=== PATIENT | male | born 1985 | race Caucasian/White ===

== ENCOUNTER 2016-04-25 16:28 | Emergency (ER) | payer OTHER, SELFPAY ==
[2016-04-25 17:02] LABS: Mean Cell Volume 96.5 fl (78-100); Mean Corpuscular Hemoglobin 34.5 pg (26-32); Mean Platelet Volume 10.1 fl (6-9.5); Platelet Count 216 K/mm3 (150-450); Red Blood Count 4.84 M/mm3 (4.1-5.6); Red Cell Distribution Width 13.1 % (11.5-14.0); White Blood Count 10.6 K/mm3 (4.0-10.5)
--- NOTE | 2016-04-25 17:08 | ERPHSYRPT ---
- History of Present Illness Time Seen by Provider: 04/25/16 17:06 Source: patient, police Exam Limitations: no limitations Patient Subjective Stated Complaint: Vince at the [facility] states pt is to have medical clearance for transfer and admission to [facility]. [facility] states they have bed assignment for pt. pt denies any pain. Triage Nursing Assessment: pt pink, warm, dry. pt alert and orineted x3. pt has superficial burn to right arm he states happend at work. pupils perrl. Physician History: The patient is a 31-year-old male brought in by police for medical clearance before transport to the [facility] in [place] for admission. Timing/Duration: today Severity: moderate Modifying Factors: Improves With: nothing Associated Symptoms: other (depression) Allergies/Adverse Reactions: No Known Drug Allergies Allergy (Verified 12/09/14 19:36) Home Medications: Paliperidone [Invega] 12 mg PO DAILY 12/04/13 [History] Dextroamphetamine/Amphetamine [Adderall 30 mg Tablet] 30 mg PO DAILY 11/06/14 [ History] Hydrocodone/Acetaminophen [Vicodin Es 7.5-300 mg Tablet] 1 tab PO BID 11/06/14 [ History] Hx Tetanus, Diphtheria Vaccination/Date Given: Yes (up to date) Hx Influenza Vaccination/Date Given: No Hx Pneumococcal Vaccination/Date Given: No Immunizations Up to Date: Yes - Review of Systems Constitutional: No Fever, No Chills Eyes: No Symptoms Ears, Nose, & Throat: No Symptoms Respiratory: No Cough, No Dyspnea Cardiac: No Chest Pain, No Edema, No Syncope Abdominal/Gastrointestinal: No Abdominal Pain, No Nausea, No Vomiting, No Diarrhea Genitourinary Symptoms: No Dysuria Musculoskeletal: No Back Pain, No Neck Pain Skin: No Rash Neurological: No Dizziness, No Focal Weakness, No Sensory Changes Psychological: Depression Endocrine: No Symptoms Hematologic/Lymphatic: No Symptoms Immunological/Allergic: No Symptoms All Other Systems: Reviewed and Negative - Past Medical History Pertinent Past Medical History: No Neurological History: No Pertinent History ENT History: No Pertinent History Cardiac History: No Pertinent History Respiratory History: No Pertinent History Endocrine Medical History: No Pertinent History Musculoskeletal History: No Pertinent History GI Medical History: No Pertinent History History: No Pertinent History Psycho-Social History: Anxiety, Other Male Reproductive Disorders: No Pertinent History Other Medical History: SCHITZOPHRENIA - Past Surgical History Past Surgical History: Yes Neuro Surgical History: No Pertinent History Cardiac: No Pertinent History Respiratory: No Pertinent History Gastrointestinal: No Pertinent History Genitourinary: No Pertinent History Musculoskeletal: Orthopedic Surgery Male Surgical History: No Pertinent History Other Surgical History: L WRIST REPAIR - Social History Smoking Status: Current every day smoker How long have you smoked: 18 Exposure to second hand smoke: Yes Drug Use: none Patient Lives Alone: No - Nursing Vital Signs Nursing Vital Signs: Initial Vital Signs Temperature 97.5 F Temperature Source Oral Pulse Rate 952 Respiratory Rate 18 Blood Pressure [Right Arm] 141/71 Pain Intensity 0 - Physical Exam General Appearance: mild distress Eye Exam: PERRL/EOMI, eyes nml inspection Ears, Nose, Throat Exam: normal ENT inspection, TMs normal, pharynx normal, moist mucous membranes Neck Exam: normal inspection, non-tender, supple, full range of motion Respiratory Exam: normal breath sounds, lungs clear, No respiratory distress Cardiovascular Exam: regular rate/rhythm, normal heart sounds, normal peripheral pulses Gastrointestinal/Abdomen Exam: soft, normal bowel sounds, No tenderness, No mass Rectal Exam: not done Back Exam: normal inspection, normal range of motion, No CVA tenderness, No vertebral tenderness Extremity Exam: normal inspection, normal range of motion, pelvis stable Neurologic Exam: depressed mood/affect Skin Exam: normal color, warm, dry, No rash Lymphatic Exam: No adenopathy SpO2 Interpretation: normal SpO2: 96 Oxygen Delivery: Room Air Ordered Tests: Active Orders 24 hr Category Date Time Status Clean Catch Urine Specimen STAT Care 04/25/16 16:39 Active Regular Diet Diet 04/26/16 Breakfast Active ACETAMINOPHEN Stat Lab 04/25/16 16:55 Completed BMP Stat Lab 04/25/16 16:55 Completed CBC Stat Lab 04/25/16 16:55 Completed Ethyl Alcohol,Urine Stat Lab 04/25/16 16:55 Completed SALICYLATE Stat Lab 04/25/16 16:55 Completed UA W/ MICROSCOPIC Stat Lab 04/25/16 16:55 Completed Urine Triage Profile Stat Lab 04/25/16 16:55 Completed Lab/Rad Data: Laboratory Result Diagrams 04/25/16 16:55 04/25/16 16:55 Laboratory Results 04/25/16 04/25/16 04/25/16 Range/Units 16:55 16:55 16:55 WBC (4.0-10.5) K/mm3 RBC (4.1-5.6) M/mm3 Hgb (12.5-18.0) gm/dl Hct (42-50) % MCV (78-100) fl MCH (26-32) pg MCHC (32-36) g/dl RDW (11.5-14.0) % Plt Count (150-450) K/mm3 MPV (6-9.5) fl Sodium 143 (136-145) mEq/L Potassium 3.9 (3.5-5.1) mEq/L Chloride 104 (98-107) mEq/L Carbon Dioxide 23.1 (21-32) mEq/L Anion Gap 19.6 H (5-15) MEQ/L BUN 10 (9-20) mg/dL Creatinine 1.12 (0.55-1.30) mg/dl Estimated GFR > 60 ML/MIN Glucose 116 H (70-110) MG/DL Calcium 9.4 (8.5-10.1) mg/dL Ur Collection Type Urine Color (YELLOW) Urine Appearance (CLEAR) Urine pH 6.0 (5-6) Ur Specific [place] (1.005-1.025) Urine Protein (Negative) Urine Glucose (UA) (NEGATIVE) mg/dL Urine Ketones (NEGATIVE) Urine Nitrite (NEGATIVE) Urine Bilirubin (NEGATIVE) Urine Urobilinogen (0-1) mg/dL Urine WBC (Auto) (NEGATIVE) Urine RBC (Auto) (0-5) Andres/ul Urine Microscopic RBC (0-2) /HPF Urine Microscopic WBC (0-5) /HPF Ur Epithelial Cells (FEW) /HPF Urine Bacteria (NEGATIVE) /HPF Urine Mucus (NEGATIVE) /HPF Salicylates 8.9 (2.8-20.0) mg/dl Urine Opiates Level NEG. (NEGATIVE) Ur Methadone NEG. (NEGATIVE) Acetaminophen < 2.0 L (10-30) ug/ml Urine Barbiturates NEG. (NEGATIVE) Ur Phencyclidine (PCP) NEG. (NEGATIVE) Urine Amphetamine NEG. (NEGATIVE) U Benzodiazepine Level NEG. (NEGATIVE) Urine Cocaine NEG. (NEGATIVE) Urine Marijuana (THC) NEG. (NEGATIVE) Urine Ethyl Alcohol 6 (0.00-20) mg/dl Specimen Received 04/25/16 04/25/16 Range/Units 16:55 16:55 WBC 10.6 H (4.0-10.5) K/mm3 RBC 4.84 (4.1-5.6) M/mm3 Hgb 16.7 (12.5-18.0) gm/dl Hct 46.7 (42-50) % MCV 96.5 (78-100) fl MCH 34.5 H (26-32) pg MCHC 35.8 (32-36) g/dl RDW 13.1 (11.5-14.0) % Plt Count 216 (150-450) K/mm3 MPV 10.1 H (6-9.5) fl Sodium (136-145) mEq/L Potassium (3.5-5.1) mEq/L Chloride (98-107) mEq/L Carbon Dioxide (21-32) mEq/L Anion Gap (5-15) MEQ/L BUN (9-20) mg/dL Creatinine (0.55-1.30) mg/dl Estimated GFR ML/MIN Glucose (70-110) MG/DL Calcium (8.5-10.1) mg/dL Ur Collection Type CLEAN CATCH Urine Color DARK YELLOW (YELLOW) Urine Appearance SLIGHTLY CLOUDY (CLEAR) Urine pH 6.0 (5-6) Ur Specific [place] >=1.030 (1.005-1.025) Urine Protein 30 (Negative) Urine Glucose (UA) NEGATIVE (NEGATIVE) mg/dL Urine Ketones MODERATE-40 (NEGATIVE) Urine Nitrite NEGATIVE (NEGATIVE) Urine Bilirubin MODERATE (NEGATIVE) Urine Urobilinogen 1 (0-1) mg/dL Urine WBC (Auto) NEGATIVE (NEGATIVE) Urine RBC (Auto) NEGATIVE (0-5) Andres/ul Urine Microscopic RBC 5-10 (0-2) /HPF Urine Microscopic WBC 2-5 (0-5) /HPF Ur Epithelial Cells FEW (FEW) /HPF Urine Bacteria MODERATE (NEGATIVE) /HPF Urine Mucus MANY (NEGATIVE) /HPF Salicylates (2.8-20.0) mg/dl Urine Opiates Level (NEGATIVE) Ur Methadone (NEGATIVE) Acetaminophen (10-30) ug/ml Urine Barbiturates (NEGATIVE) Ur Phencyclidine (PCP) (NEGATIVE) Urine Amphetamine (NEGATIVE) U Benzodiazepine Level (NEGATIVE) Urine Cocaine (NEGATIVE) Urine Marijuana (THC) (NEGATIVE) Urine Ethyl Alcohol (0.00-20) mg/dl Specimen Received 04/25/16 1715 - Progress Progress: unchanged Counseled pt/family regarding: lab results, diagnosis - Departure Time of Disposition: 17:51 Departure Disposition: Home Clinical Impression: Medical clearance for psychiatric admission, Mild dehydration Condition: Stable Critical Care Time: No
[2016-04-25 17:36] LABS: ANION GAP 19.6 MEQ/L (5-15); BLOOD UREA NITROGEN 10 mg/dL (9-20); CHLORIDE 104 mEq/L (98-107); Carbon Dioxide 23.1 mEq/L (21-32); Glucose 116 MG/DL (70-110); Potassium 3.9 mEq/L (3.5-5.1); SODIUM 143 mEq/L (136-145)
[2016-04-25 17:37] LABS: ACETAMINOPHEN < 2.0 ug/ml (10-30)
[2016-04-25 17:41] LABS: COMPLETE URINE MICROSCOPIC? YES; Collection Type CLEAN CATCH
[2016-04-25 17:42] LABS: Bacteria MODERATE /HPF (NEGATIVE); Epithelial Cells FEW /HPF (FEW); Mucus MANY /HPF (NEGATIVE)
[2016-04-25 18:34] LABS: ALBUMIN 4.6 g/dL (3.4-5.0); BILIRUBIN,TOTAL 0.6 mg/dL (0.2-1.0); Total Protein 8.3 gm/dL (6.4-8.2)
[2016-04-25 18:44] VITALS: BP 146/92; PULSE 100; O2SAT 98
[2016-04-25 18:50] LABS: Direct Bilirubin 0.17 MG/DL (0.0-0.2)
== END 2016-04-25 19:12 | disposition short-term general hospital (02) ==
LOC: ED 16:28
DX: Z04.6 Encounter for general psychiatric examination, requested by authority (principal); E86.0 Dehydration; T22.00XA Burn of unspecified degree of shoulder and upper limb, except wrist and hand, unspecified site, initial encounter
CPT/HCPCS: 36415; 80048; 80076; 80307; 80320; 81000; 83986; 85027; 99283; G0481

== ENCOUNTER 2019-06-19 00:57 | Emergency (ER) | payer SELFPAY ==
[2019-06-19] MEDS ORDERED: SODIUM CHLORIDE 0.9% IV ONE ×4 (00:58)
[2019-06-19] MEDS ORDERED: Versed 50 MG/ 10 Ml MDV*** 50 MG in Sodium Chloride 0.9% 250 ML 250 ML IV ONE (00:58)
[2019-06-19] MEDS ORDERED: Quelicin Fliptop 200 MG/10 ML IV ONE (00:58)
[2019-06-19] MEDS ORDERED: ZEMURON IV ONE ×4 (00:58)
[2019-06-19] MEDS ORDERED: Zemuron 100 MG/10 ML IV ONE ×2 (00:58)
[2019-06-19] MEDS ORDERED: Amidate 20 MG/10 ML IV ONE (00:58)
[2019-06-19] MEDS ORDERED: VERSED 5 MG/5 ML IV ONE (00:58)
[2019-06-19] MEDS ORDERED: Sodium Chloride 0.9% 1000 ML 1,000 ML ONE (00:59)
[2019-06-19] MEDS ORDERED: Zofran 4 MG/2 ML VIAL IV ONE (01:20)
[2019-06-19] MEDS ORDERED: Sodium Chloride 0.9% 1000 ML 1,000 ML IV STA (01:20)
--- NOTE | 2019-06-19 01:37 | ERPHSYRPT ---
- History of Present Illness Time Seen by Provider: 06/19/19 01:00 Source: EMS Exam Limitations: clinical condition, intoxication Physician History: 34 years old male is brought in the ER by EMS with chief complaint of overdose. Patient was found at home and has ingested trihexyphenidyl and clonidine. Reportedly patient has taken trihexyphenidyl 5 mg x 15 and clonidine 0.5 mg x 23 around 8 PM tonight. Patient was in and out of consciousness on EMS arrival. Later on patient was belligerent. On arrival in the ER patient is difficult to arouse but maintaining vitals. Oral cavity/mouth is stained with chewed trihexyphenidyl. History is limited and is obtained from EMS. Timing/Duration: hour(s) (5) Severity of Symptoms-Max: severe Allergies/Adverse Reactions: No Known Drug Allergies Allergy (Verified 06/19/19 05:01) Home Medications: Clonazepam 0.5 mg [Klonopin 0.5 MG] 0.5 mg PO BID 06/19/19 [History] Trihexyphenidyl HCl 5 mg PO TIDPRN 06/19/19 [History] Hx Tetanus, Diphtheria Vaccination/Date Given: Yes (up to date) Hx Influenza Vaccination/Date Given: No Hx Pneumococcal Vaccination/Date Given: No - Past Medical History Pertinent Past Medical History: No Neurological History: No Pertinent History ENT History: No Pertinent History Cardiac History: No Pertinent History Respiratory History: No Pertinent History Endocrine Medical History: No Pertinent History Musculoskeletal History: No Pertinent History GI Medical History: No Pertinent History History: No Pertinent History Psycho-Social History: Anxiety, Other Male Reproductive Disorders: No Pertinent History Other Medical History: SCHITZOPHRENIA - Past Surgical History Past Surgical History: Yes Neuro Surgical History: No Pertinent History Cardiac: No Pertinent History Respiratory: No Pertinent History Gastrointestinal: No Pertinent History Genitourinary: No Pertinent History Musculoskeletal: Orthopedic Surgery Male Surgical History: No Pertinent History Other Surgical History: L WRIST REPAIR - Social History Smoking Status: Current every day smoker How long have you smoked: 18 Exposure to second hand smoke: Yes Drug Use: none Patient Lives Alone: No - Review of Systems All Other Systems: Unable due to condition - Nursing Vital Signs Nursing Vital Signs: Initial Vital Signs Pulse Rate 68 06/19/19 00:57 Respiratory Rate 20 06/19/19 00:57 Blood Pressure 98/54 06/19/19 00:57 - Physical Exam General Appearance: no apparent distress, other (Unconscious) Eyes, Ears, Nose, Throat Exam: normal ENT inspection, TMs normal, pharynx normal , moist mucous membranes (2 tablets standing lips and tongue) Neck Exam: normal inspection, non-tender, supple Respiratory Exam: normal breath sounds, lungs clear, No chest tenderness, No respiratory distress Cardiovascular Exam: regular rate/rhythm, normal heart sounds, normal peripheral pulses Gastrointestinal/Abdominal Exam: soft, normal bowel sounds, No tenderness, No distention, No mass, No guarding Extremities Exam: normal inspection, evidence of injury Neurological Exam: withdraws to pain (Dilated pupils 5 mm bilaterally, sluggish response. Normal tone. Normal deep tendon reflexes 2+ laterally. full neuro exam cannot be done) Skin Exam: normal color, warm SpO2 Interpretation: normal O2 Delivery: Room Air Procedures - Intubation Intubation Indications: airway protection Intubation Method: glidescope Tube Size (cm): 7.5 Medications: Etomidate, Succinylcholine Endotracheal Tube Confirmation: bilateral breath sounds, positive end tidal CO2 , good rise & fall of chest Intubation Complications: no complications Performed By: ED Physician Post Intubation Xray: Yes - Course Nursing assessment & vital signs reviewed: Yes EKG Interpreted by Me: RATE (64), NORMAL AXIS, NORMAL INTERVALS, NORMAL QRS Ordered Tests: Active Orders 24 hr Category Date Time Status Accucheck STAT Care 06/19/19 01:20 Active Rigger Apprentice STAT Care 06/19/19 01:21 Active Catheter-[place] STAT Care 06/19/19 01:20 Active EKG-ER Only STAT Care 06/19/19 01:20 Active Gastric Tube Insertion STAT Care 06/19/19 01:20 Active IV Insertion STAT Care 06/19/19 01:20 Active NPO (ED) STAT Care 06/19/19 01:20 Active CHEST 1 VIEW (PORTABLE) Routine Exams 06/19/19 01:35 Taken CHEST 1 VIEW (PORTABLE) Stat Exams 06/19/19 01:21 Taken ACETAMINOPHEN Stat Lab 06/19/19 01:50 Completed ARTERIAL BLOOD GASES Stat Lab 06/19/19 01:52 Completed CBC W DIFF Stat Lab 06/19/19 01:50 Completed CK-Creatinine Phosphokinase Stat Lab 06/19/19 01:50 Completed CMP Stat Lab 06/19/19 01:50 Completed CULTURE,URINE Stat Lab 06/19/19 02:48 Received ETHYL ALCOHOL Stat Lab 06/19/19 01:50 Completed Lactic Acid Stat Lab 06/19/19 01:52 Completed MAGNESIUM Stat Lab 06/19/19 01:50 Completed PROTIME WITH INR Stat Lab 06/19/19 01:50 Completed SALICYLATE Stat Lab 06/19/19 01:50 Completed TROPONIN Q3H Lab 06/19/19 01:50 Completed UA W/RFX UR CULTURE Stat Lab 06/19/19 02:48 Completed Urine Triage Profile Stat Lab 06/19/19 02:48 Completed Intubation [Ventilator Management] STAT RT 06/19/19 02:42 Active Respiratory Therapy Assessment DAILY RT 06/19/19 02:26 Active Medication Summary Discontinued Medications Generic Name Dose Route Start Last Admin Trade Name Freq PRN Reason Stop Dose Admin Sodium Chloride Confirm 06/19/19 00:59 Sodium Chloride 0.9% 1000 Ml Administered 06/19/19 01:00 Dose 1,000 mls @ ud .ROUTE .STK-MED ONE Sodium Chloride 1,000 mls @ 999 mls/hr 06/19/19 01:20 06/19/19 04:08 Sodium Chloride 0.9% 1000 Ml IV 06/19/19 02:20 Infused .Q1H1M STA Infusion Sodium Chloride 1,000 mls @ 125 mls/hr 06/19/19 02:00 06/19/19 01:53 Sodium Chloride 0.9% 1000 Ml IV 07/19/19 01:59 125 mls/hr .Q8H SHAJI Administration Sodium Chloride Confirm 06/19/19 01:57 Sodium Chloride 0.9% 250 Ml Administered 06/19/19 01:58 Dose 250 mls @ ud IV .STK-MED ONE Midazolam HCl 50 mg/ Sodium 250 mls @ 10 mls/hr 06/19/19 02:03 Chloride IV 07/19/19 02:02 .Q24H PRN SEDATION Protocol 2 MG/HR Midazolam HCl Confirm 06/19/19 01:57 Versed 50 Mg/ 10 Ml Mdv Administered 06/19/19 01:58 Dose 50 mg .ROUTE .STK-MED ONE Ondansetron HCl 4 mg 06/19/19 01:20 06/19/19 02:24 Zofran 4 Mg/2 Ml Vial IV 06/19/19 01:21 4 mg STAT ONE Administration Ondansetron HCl Confirm 06/19/19 02:23 Zofran 4 Mg/2 Ml Vial Administered 06/19/19 02:24 Dose 4 mg .ROUTE .STK-MED ONE Lab/Rad Data: Laboratory Result Diagrams 06/19/19 01:50 06/19/19 01:50 Laboratory Results 06/19/19 06/19/19 06/19/19 Range/Units 02:48 02:48 01:52 WBC (4.0-10.5) K/mm3 RBC (4.1-5.6) M/mm3 Hgb (12.5-18.0) gm/dl Hct (42-50) % MCV (78-100) fl MCH (26-32) pg MCHC (32-36) g/dl RDW (11.5-14.0) % Plt Count (150-450) K/mm3 MPV (7.5-11.0) fl Gran % (36.0-66.0) % Eos # (Auto) (0-0.5) Absolute Lymphs (auto) (1.0-4.6) Absolute Monos (auto) (0.0-1.3) Lymphocytes % (24.0-44.0) % Monocytes % (0.0-12.0) % Eosinophils % (0.00-5.0) % Basophils % (0.0-0.4) % Absolute Granulocytes (1.4-6.9) Basophils # (0-0.4) PT (8.83-12.87) SECONDS INR (0.8-3.0) Puncture Site LEFT BRACHIAL pCO2 38 (35-45) mmHg pO2 228 H* (75-100) mmHg Base Excess -1.7 (-2.0-2.0) O2 Saturation 93.1 L (94-100) g/dF ABG pH 7.39 (7.35-7.45) ABG HCO3 23.0 (22-28) ABG O2 Sat (Measured) 99.9 (95-100) % Tonny Test NO A-a Gradient 438 a/A Ratio 0.34 Hemoglobin 13.1 Carboxyhemoglobin 5.7 (0.0-6.9) % THgb Methemoglobin 1.1 L (1.4-1.5) % Temperature 37.0 C POC O2 Flow Rate 100 % Vent Mode A/C Tidal Volume 550 cc PEEP 5.0 cmH2O Sodium (137-145) mmol/L Potassium 3.4 L (3.5-5.1) mmol/L Chloride (98-107) mmol/L Carbon Dioxide (22-30) mmol/L Anion Gap (5-15) MEQ/L BUN (9-20) mg/dL Creatinine (0.66-1.25) mg/dL Estimated GFR ML/MIN Glucose (74-106) mg/dL Lactic Acid 0.7 (0.4-2.0) Calcium (8.4-10.2) mg/dL Magnesium (1.6-2.3) mg/dL Total Bilirubin (0.2-1.3) mg/dL AST (17-59) U/L ALT (0-50) U/L Alkaline Phosphatase (38-126) U/L Creatine Kinase (55-170) U/L Troponin I (0.000-0.034) ng/mL Serum Total Protein (6.3-8.2) g/dL Albumin (3.5-5.0) g/dL Urine Color YELLOW (YELLOW) Urine Appearance CLEAR (CLEAR) Urine pH 6.0 (5-6) Ur Specific [place] 1.010 (1.005-1.025) Urine Protein NEGATIVE (Negative) Urine Ketones NEGATIVE (NEGATIVE) Urine Blood NEGATIVE (0-5) Andres/ul Urine Nitrite NEGATIVE (NEGATIVE) Urine Bilirubin NEGATIVE (NEGATIVE) Urine Urobilinogen NEGATIVE (0-1) mg/dL Ur Leukocyte Esterase NEGATIVE (NEGATIVE) Urine WBC (Auto) 0-2 (0-5) /HPF Urine RBC (Auto) 0-2 (0-2) /HPF U Epithel Cells (Auto) NONE (FEW) /HPF Urine Bacteria (Auto) NONE SEEN (NEGATIVE) /HPF Urine Mucus (Auto) SLIGHT (NEGATIVE) /HPF Urine Culture Reflexed ORDERED SEPARATELY (NO) Urine Glucose NEGATIVE (NEGATIVE) mg/dL Salicylates (2-20) mg/dL Urine Opiates Level POSITIVE (NEGATIVE) Ur Methadone NEGATIVE (NEGATIVE) Acetaminophen (10-30) ug/ml Urine Barbiturates NEGATIVE (NEGATIVE) Ur Phencyclidine (PCP) POSITIVE (NEGATIVE) Urine Amphetamine POSITIVE (NEGATIVE) U Benzodiazepine Level POSITIVE (NEGATIVE) Urine Cocaine NEGATIVE (NEGATIVE) Urine Marijuana (THC) NEGATIVE (NEGATIVE) Ethyl Alcohol (0-10) mg/dL 06/19/19 06/19/19 06/19/19 Range/Units 01:50 01:50 01:50 WBC (4.0-10.5) K/mm3 RBC (4.1-5.6) M/mm3 Hgb (12.5-18.0) gm/dl Hct (42-50) % MCV (78-100) fl MCH (26-32) pg MCHC (32-36) g/dl RDW (11.5-14.0) % Plt Count (150-450) K/mm3 MPV (7.5-11.0) fl Gran % (36.0-66.0) % Eos # (Auto) (0-0.5) Absolute Lymphs (auto) (1.0-4.6) Absolute Monos (auto) (0.0-1.3) Lymphocytes % (24.0-44.0) % Monocytes % (0.0-12.0) % Eosinophils % (0.00-5.0) % Basophils % (0.0-0.4) % Absolute Granulocytes (1.4-6.9) Basophils # (0-0.4) PT 13.2 H (8.83-12.87) SECONDS INR 1.16 (0.8-3.0) Puncture Site pCO2 (35-45) mmHg pO2 (75-100) mmHg Base Excess (-2.0-2.0) O2 Saturation (94-100) g/dF ABG pH (7.35-7.45) ABG HCO3 (22-28) ABG O2 Sat (Measured) (95-100) % Tonny Test A-a Gradient a/A Ratio Hemoglobin Carboxyhemoglobin (0.0-6.9) % THgb Methemoglobin (1.4-1.5) % Temperature C POC O2 Flow Rate % Vent Mode Tidal Volume cc PEEP cmH2O Sodium 141 (137-145) mmol/L Potassium 3.6 (3.5-5.1) mmol/L Chloride 109 H (98-107) mmol/L Carbon Dioxide 24 (22-30) mmol/L Anion Gap 12.2 (5-15) MEQ/L BUN 10 (9-20) mg/dL Creatinine 0.67 (0.66-1.25) mg/dL Estimated GFR > 60.0 ML/MIN Glucose 102 (74-106) mg/dL Lactic Acid (0.4-2.0) Calcium 8.6 (8.4-10.2) mg/dL Magnesium 1.9 (1.6-2.3) mg/dL Total Bilirubin 0.40 (0.2-1.3) mg/dL AST 17 (17-59) U/L ALT 9 (0-50) U/L Alkaline Phosphatase 38 (38-126) U/L Creatine Kinase 29 L (55-170) U/L Troponin I < 0.012 (0.000-0.034) ng/mL Serum Total Protein 6.7 (6.3-8.2) g/dL Albumin 3.8 (3.5-5.0) g/dL Urine Color (YELLOW) Urine Appearance (CLEAR) Urine pH (5-6) Ur Specific [place] (1.005-1.025) Urine Protein (Negative) Urine Ketones (NEGATIVE) Urine Blood (0-5) Andres/ul Urine Nitrite (NEGATIVE) Urine Bilirubin (NEGATIVE) Urine Urobilinogen (0-1) mg/dL Ur Leukocyte Esterase (NEGATIVE) Urine WBC (Auto) (0-5) /HPF Urine RBC (Auto) (0-2) /HPF U Epithel Cells (Auto) (FEW) /HPF Urine Bacteria (Auto) (NEGATIVE) /HPF Urine Mucus (Auto) (NEGATIVE) /HPF Urine Culture Reflexed (NO) Urine Glucose (NEGATIVE) mg/dL Salicylates < 1.0 L (2-20) mg/dL Urine Opiates Level (NEGATIVE) Ur Methadone (NEGATIVE) Acetaminophen < 10 L (10-30) ug/ml Urine Barbiturates (NEGATIVE) Ur Phencyclidine (PCP) (NEGATIVE) Urine Amphetamine (NEGATIVE) U Benzodiazepine Level (NEGATIVE) Urine Cocaine (NEGATIVE) Urine Marijuana (THC) (NEGATIVE) Ethyl Alcohol < 10 (0-10) mg/dL 06/19/19 Range/Units 01:50 WBC 7.6 (4.0-10.5) K/mm3 RBC 3.81 L (4.1-5.6) M/mm3 Hgb 12.6 (12.5-18.0) gm/dl Hct 36.3 L (42-50) % MCV 95.3 (78-100) fl MCH 33.1 H (26-32) pg MCHC 34.7 (32-36) g/dl RDW 11.8 (11.5-14.0) % Plt Count 196 (150-450) K/mm3 MPV 9.4 (7.5-11.0) fl Gran % 50.9 (36.0-66.0) % Eos # (Auto) 0.33 (0-0.5) Absolute Lymphs (auto) 2.80 (1.0-4.6) Absolute Monos (auto) 0.59 (0.0-1.3) Lymphocytes % 36.7 (24.0-44.0) % Monocytes % 7.7 (0.0-12.0) % Eosinophils % 4.3 (0.00-5.0) % Basophils % 0.4 (0.0-0.4) % Absolute Granulocytes 3.87 (1.4-6.9) Basophils # 0.03 (0-0.4) PT (8.83-12.87) SECONDS INR (0.8-3.0) Puncture Site pCO2 (35-45) mmHg pO2 (75-100) mmHg Base Excess (-2.0-2.0) O2 Saturation (94-100) g/dF ABG pH (7.35-7.45) ABG HCO3 (22-28) ABG O2 Sat (Measured) (95-100) % Tonny Test A-a Gradient a/A Ratio Hemoglobin Carboxyhemoglobin (0.0-6.9) % THgb Methemoglobin (1.4-1.5) % Temperature C POC O2 Flow Rate % Vent Mode Tidal Volume cc PEEP cmH2O Sodium (137-145) mmol/L Potassium (3.5-5.1) mmol/L Chloride (98-107) mmol/L Carbon Dioxide (22-30) mmol/L Anion Gap (5-15) MEQ/L BUN (9-20) mg/dL Creatinine (0.66-1.25) mg/dL Estimated GFR ML/MIN Glucose (74-106) mg/dL Lactic Acid (0.4-2.0) Calcium (8.4-10.2) mg/dL Magnesium (1.6-2.3) mg/dL Total Bilirubin (0.2-1.3) mg/dL AST (17-59) U/L ALT (0-50) U/L Alkaline Phosphatase (38-126) U/L Creatine Kinase (55-170) U/L Troponin I (0.000-0.034) ng/mL Serum Total Protein (6.3-8.2) g/dL Albumin (3.5-5.0) g/dL Urine Color (YELLOW) Urine Appearance (CLEAR) Urine pH (5-6) Ur Specific [place] (1.005-1.025) Urine Protein (Negative) Urine Ketones (NEGATIVE) Urine Blood (0-5) Andres/ul Urine Nitrite (NEGATIVE) Urine Bilirubin (NEGATIVE) Urine Urobilinogen (0-1) mg/dL Ur Leukocyte Esterase (NEGATIVE) Urine WBC (Auto) (0-5) /HPF Urine RBC (Auto) (0-2) /HPF U Epithel Cells (Auto) (FEW) /HPF Urine Bacteria (Auto) (NEGATIVE) /HPF Urine Mucus (Auto) (NEGATIVE) /HPF Urine Culture Reflexed (NO) Urine Glucose (NEGATIVE) mg/dL Salicylates (2-20) mg/dL Urine Opiates Level (NEGATIVE) Ur Methadone (NEGATIVE) Acetaminophen (10-30) ug/ml Urine Barbiturates (NEGATIVE) Ur Phencyclidine (PCP) (NEGATIVE) Urine Amphetamine (NEGATIVE) U Benzodiazepine Level (NEGATIVE) Urine Cocaine (NEGATIVE) Urine Marijuana (THC) (NEGATIVE) Ethyl Alcohol (0-10) mg/dL - Progress Progress: re-examined Progress Note: 06/19/19 01:38 34 years old is evaluated in the ER for clonidine and trihexyphenidyl overdose. Patient is minimally responsive to painful stimuli. He is promptly intubated to protect his airway. Post intubation x-ray chest did not show any acute findings. Poison control is called, recommended supportive care and monitoring of QT interval and sedation with benzos/propofol. 06/19/19 02:30 Patient initial work-up is stable. Discussed with Dr. Medina at [facility] and patient is accepted for transfer. 06/19/19 05:21 Patient remained on the vent. Patient is paralyzed with rocuronium and sedated with Versed. Urinalysis positive for multiple substance. Vitals remained stable. Ready for transfer. Discussed with : Other (Adam) - Departure Departure Disposition: Transfer Clinical Impression: Polysubstance abuse Drug overdose, intentional Qualifiers: Encounter type: initial encounter Qualified Code(s): T50.902A - Poisoning by unspecified drugs, medicaments and biological substances, intentional self-harm , initial encounter Condition: Stable Critical Care Time: Yes Critical Care Time(excluding separately billable procedures): Critical 75-104 mins Referrals: DOCTOR,NO FAMILY [Primary Care Provider] -
[2019-06-19 01:56] LABS: A-aADO2 438; ABG HEMOGLOBIN 13.1; ABG POTASSIUM 3.4 (3.5-5.1); ABG SITE LEFT BRACHIAL; ALLEN TEST OK? NO; ARTERIAL BLD GAS O2 SATURATION 99.9 % (95-100); ARTERIAL BLOOD GAS BASE EXCESS -1.7 (-2.0-2.0); ARTERIAL BLOOD GAS FIO2 100 %; ARTERIAL BLOOD GAS PCO2 38 mmHg (35-45); ARTERIAL BLOOD GAS PO2 228 mmHg (75-100); ARTERIAL BLOOD GAS VENT MODE A/C; ARTERIAL BLOOD GAS pH 7.39 (7.35-7.45); CARBOXYHEMOGLOBIN 5.7 % THgb (0.0-6.9); HGB O2 SAT 93.1 g/dF (94-100); Lactic Acid 0.7 (0.4-2.0); Methhemoglobin 1.1 % (1.4-1.5); paO2 pAO1 0.34
[2019-06-19 01:57] LABS: Absolute Neutrophil Ct (ANC) 3.87 (1.4-6.9); BASOPHIL % 0.4 % (0.0-0.4); Basophil (Absolute #) 0.03 (0-0.4); Eosinophil % 4.3 % (0.00-5.0); Eosinophil (Absolute #) 0.33 (0-0.5); Hematocrit 36.3 % (42-50); Hemoglobin 12.6 gm/dl (12.5-18.0); Lymphocytes % 36.7 % (24.0-44.0); Mean Cell Volume 95.3 fl (78-100); Mean Corpuscular Hemoglobin 33.1 pg (26-32); Mean Corpuscular Hgb Concent. 34.7 g/dl (32-36); Mean Platelet Volume 9.4 fl (7.5-11.0); Monocyte (Absolute #) 0.59 (0.0-1.3); Monocytes % 7.7 % (0.0-12.0); Neutrophil % 50.9 % (36.0-66.0); Platelet Count 196 K/mm3 (150-450); Red Blood Count 3.81 M/mm3 (4.1-5.6); Red Cell Distribution Width 11.8 % (11.5-14.0); White Blood Count 7.6 K/mm3 (4.0-10.5)
[2019-06-19] MEDS ORDERED: Versed 50 MG/ 10 Ml MDV ONE (01:57)
[2019-06-19] MEDS ORDERED: Sodium Chloride 0.9% 250 ML 250 ML IV ONE (01:57)
[2019-06-19] MEDS ORDERED: Sodium Chloride 0.9% 1000 ML 1,000 ML IV SCH (02:00)
[2019-06-19] MEDS ORDERED: Versed 50 MG/ 10 Ml MDV*** 50 MG in Sodium Chloride 0.9% 250 ML 240 ML IV PRN (02:03)
[2019-06-19 02:04] VITALS: O2SAT 100
[2019-06-19 02:07] LABS: INR 1.16 (0.8-3.0); PROTIME 13.2 SECONDS (8.83-12.87)
[2019-06-19 02:12] LABS: ALBUMIN 3.8 g/dL (3.5-5.0); ALKALINE PHOSPHATASE 38 U/L (38-126); ANION GAP 12.2 MEQ/L (5-15); BLOOD UREA NITROGEN 10 mg/dL (9-20); CHLORIDE 109 mmol/L (98-107); CK-Creatinine Phosphokinase 29 U/L (55-170); Calcium 8.6 mg/dL (8.4-10.2); Carbon Dioxide 24 mmol/L (22-30); Creatinine 1 0.67 mg/dL (0.66-1.25); Glucose 102 mg/dL (74-106); MAGNESIUM 1.9 mg/dL (1.6-2.3); Potassium 3.6 mmol/L (3.5-5.1); SGOT/AST 17 U/L (17-59); SGPT/ALT 9 U/L (0-50); SODIUM 141 mmol/L (137-145); Total Protein 6.7 g/dL (6.3-8.2)
[2019-06-19 02:14] LABS: ACETAMINOPHEN < 10 ug/ml (10-30); ETHYL ALCOHOL < 10 mg/dL (0-10); SALICYLATE < 1.0 mg/dL (2-20)
[2019-06-19] MEDS ORDERED: Zofran 4 MG/2 ML VIAL ONE (02:23)
[2019-06-19 02:55] LABS: Appearance CLEAR (CLEAR); Bacteria NONE SEEN /HPF (NEGATIVE); Bilirubin NEGATIVE (NEGATIVE); Blood NEGATIVE Ery/ul (0-5); Glucose NEGATIVE (NEGATIVE); Ketones NEGATIVE (NEGATIVE); Leukocyte Esterase NEGATIVE (NEGATIVE); Mucus SLIGHT /HPF (NEGATIVE); Nitrite NEGATIVE (NEGATIVE); Protein,Urine Dip NEGATIVE (Negative); RBC 0-2 /HPF (0-2); Urobilinogen NEGATIVE mg/dL (0-1); WBC 0-2 /HPF (0-5)
[2019-06-19 03:08] LABS: Amphetamine,Urine POSITIVE (NEGATIVE); Barbiturate,Urine NEGATIVE (NEGATIVE); Benzodiazepine,Urine POSITIVE (NEGATIVE); Cocaine,Urine NEGATIVE (NEGATIVE); Methadone,Urine NEGATIVE (NEGATIVE); Opiate,Urine POSITIVE (NEGATIVE); PCP,Urine POSITIVE (NEGATIVE); THC,Urine NEGATIVE (NEGATIVE)
[2019-06-19 05:05] VITALS: BP 129/82
[2019-06-19 05:57] VITALS: PULSE 64
--- NOTE | 2019-06-19 09:12 | XRAY ---
Indication: Overdose. Endotracheal tube placement. Comparison: November 06, 2014. Portable chest demonstrates new endotracheal tube tip approximately 7 cm above the tanesha. Remaining heart, lungs, and bony thorax normal.
--- NOTE | 2019-06-19 09:14 | XRAY ---
Indication: Endotracheal tube advancement. Comparison: Taken earlier in the day. Portable chest demonstrates advancement of endotracheal tube with the tip now approximately 3.5 cm above the tanesha. Remaining heart, lungs, and bony thorax normal.
== END 2019-06-19 05:40 | disposition short-term general hospital (02) ==
LOC: ED 00:57
DX: F19.10 Other psychoactive substance abuse, uncomplicated (principal); T46.5X2A Poisoning by other antihypertensive drugs, intentional self-harm, initial encounter; T44.3X2A Poisoning by other parasympatholytics [anticholinergics and antimuscarinics] and spasmolytics, intentional self-harm, initial encounter; F20.9 Schizophrenia, unspecified; Z79.899 Other long term (current) drug therapy; Z72.0 Tobacco use
CPT/HCPCS: 31500; 36000; 36415; 36600; 51702; 71045; 80053; 80307; 81001; 82375; 82550; 82803; 82962; 83605; 83735; 84484; 85025; 85610; 87086; 93005; 93041; 94002; 94799; 96360; 96361; 96374; 99285; 99291; G0481; J0330; J2250; J2405; G0480